=== PATIENT | male | born 1990 ===

== ENCOUNTER 2025-05-13 11:34 | Outpatient (REF) | payer OTHER, SELFPAY ==
[2025-05-13 14:06] LABS: Lipase 30 U/L (8-78)
== END 2025-05-13 11:35 | disposition home or self-care (01) ==
LOC: HO.LAB 11:34
PROVIDERS: PCP Nurse Practitioner Family; Visit Provider Nurse Practitioner Family
DX: K21.9 Gastro-esophageal reflux disease without esophagitis (principal); R10.13 Epigastric pain
CPT/HCPCS: 36415; 83013; 83690; 86364; 99202

== ENCOUNTER 2025-05-13 11:34 | Outpatient (AMB) | payer OTHER, SELFPAY ==
--- NOTE | 2025-05-13 11:37 | A.OFFVIS_ITS ---
Vital Signs 05/13/25 11:45 Height 5 ft 1.42 in Weight 148 lb BMI 27.6 BP 126/56 L Blood Pressure Location Rt brachial Position Sitting Pulse 46 L Pulse Source Pulse Oximeter Pulse Oximetry (%) 99 Oxygen Delivery Method Room Air Intake Visit Reasons: Gastroesophageal reflux disease (GERD) Intake Note: New pt for initial eval of GERD. Per PCP Note, taking PPI PRN. CC; Staffing And Scheduling Coordinator Required: Yes Staffing And Scheduling Coordinator Services: Staffing And Scheduling Coordinator Present Staffing And Scheduling Coordinator Name: Ravinder [id number] + [facility] [place] Information Interpreted: clinical only Accompanied by: Self / Same As Patient Allergies No Known Allergies Allergy (Verified 05/13/25 11:37) HPI HPI Gastroesophageal reflux disease (GERD): Details: 34-year-old male with no significant past medical history is here today for initial consultation. Patient has been concerned about his frequent acid reflux. Patient reports that he has been struggling with severe acid reflux in the past few years. On and off he has been taking omeprazole for few months then stopping for couple months. Patient reports that when he is taking omeprazole his symptoms are suppressed and he can pretty much eat anything he wants. He is not on any particular diet, however he is not eating spicy food. Patient drinks coffee in the morning eats mostly [place] food. Denies any trouble moving his bowels. Stooling daily. Denies melena, hematochezia, unintentional weight loss or ribbon like stools. Patient denies any dyspepsia, dysphagia or odynophagia. [facility] Medical History (Updated 05/13/25 @ 13:07 by Marcella Davis, [facility]) GERD (gastroesophageal reflux disease) Social History (Updated 05/13/25 @ 11:44 by Jamey Benoit [facility]) Alcohol intake: current Comment: Few times / year Patient Tobacco Use Status: Current someday Tobacco user Review of Systems Const Denies weight gain and Denies weight loss ENT Reports no additional complaints, Denies dysphagia and Denies odynophagia Card Reports no additional complaints Resp Reports no additional complaints GI Reports abdominal pain (epigastric), Denies belching, Denies melena, Denies bloating, Denies change in bowel habits, Denies dysphagia, Denies excessive flatus, Denies dyspepsia, Reports heartburn, Denies diarrhea, Denies loose stools, Denies nausea, Denies odynophagia and Denies vomiting Reports no additional complaints Musc Reports no additional complaints Neuro Reports no additional complaints Psych Reports no additional complaints Endo Reports no additional complaints Physical Exam Vital Signs: Last Vital Signs Pulse 46 L 05/13/25 11:45 BP 126/56 L 05/13/25 11:45 Pulse Ox 99 05/13/25 11:45 Oxygen Delivery Method Room Air 05/13/25 11:45 BMI result Body Mass Index 27.6 Const General: healthy appearing, no acute distress and well developed Nutritional Appearance: well nourished Orientation/consciousness: patient oriented x3 Resp Effort & Inspection: normal respiratory effort, able to speak in complete sentences, no tracheal deviation and symmetric chest movement Auscultation: clear to auscultation bilaterally Cardio Rate: regular rate GI Inspection: Yes normal to inspection and No distended Palpation (GI): Soft to palpation, not firm, nontender and No hepatosplenomegaly present Auscultation: normal bowel sounds General: Yes no CVA tenderness Back/Spine/Pelvis Back: no CVA tenderness Skin General skin exam: elasticity normal, turgor normal and dry skin Neuro General: patient oriented x3 Assessment & Plan Assessment & Plan (1) GERD (gastroesophageal reflux disease): Code(s): K21.9 - Gastro-esophageal reflux disease without esophagitis Category: Medical Qualifiers: Esophagitis presence: esophagitis presence not specified Qualified Cod e(s): K21.9 - Gastro-esophageal reflux disease without esophagitis (2) Postprandial epigastric pain: Code(s): R10.13 - Epigastric pain Plan Stopped omeprazole over 2 weeks ago we will do H pylori testing today. Will treat empirically if positive. Patient will also go for upper GI with barium swallow. Will check transglutaminase and lipase. Discussed with patient avoiding dietary triggers and like night snacking. Staying upright for minimum 3 hours after meals discussed with patient. Patient received a [place] copy of guidance and diet recommendation for GERD. Patient will follow-up in our office in 4 months. Patient was encouraged to call us if you have any GI concerning symptoms. Patient is agreeable to this plan and verbalizes understanding of instructions. He was given the opportunity to ask questions and all questions answered. Thank you for allowing me to participate in his care Orders: Orders H Pylori Breath Test 05/13/25 K21.9 - Gastro-esophageal reflux disease without esophagitis Transglutaminase IgA 05/13/25 R10.9 - Unspecified abdominal pain Lipase 05/13/25 R10.9 - Unspecified abdominal pain FL upper GI w air w Ba Swallow 05/13/25 K21.9 - Gastro-esophageal reflux disease without esophagitis Medications: New omeprazole 20 mg PO DAILY 90 caps 2RF Coding Level of Care Code New Pt Level 4 (31441) Diagnoses Gastroesophageal reflux disease, unspecified whether esophagitis present K21.9 Esophagitis presence: esophagitis presence not specified Postprandial epigastric pain R10.13 Time Spent (min) 45 Comment 35 minutes spent with patient and additional 10 minutes spent reviewing his records
[2025-05-13 11:45] VITALS: BP 126/56; PULSE 46; O2SAT 99; BMI 27.6
--- OUTSIDE RECORDS SUMMARY | 2025-05-13 13:18 | XMS_ITS | Clinical Summary ---
Author Organization [employer] Address [address] [place] [address] Care Team Providers Care Vacation Sales Advisor Name Role Phone Unavailable Primary Care Provider Unavailabl e Allergies No known active allergies Medications Omeprazole 20 MG tablet delayed-release Take 1 tablet (20 mg) by mouth Once per day. 30 tablet 2 02/13/2025 Active acetaminophen (Tylenol 8 Hour) 650 MG ER tablet Take 1 tablet (650 mg) by mouth every 8 (eight) hours if needed for mild pain. Do not crush, chew, or split. 30 tablet 04/22/2025 Active ibuprofen 600 MG tablet Take 1 tablet (600 mg) by mouth 3 times daily. 15 tablet 04/22/2025 Active amoxicillin (Amoxil) 500 MG capsule Take 1 capsule (500 mg) by mouth every 8 (eight) hours for 7 days. 21 capsule 04/22/2025 04/29/20 25 Active Problems Problem Noted Date Diagnosed Date Severe dental caries 04/22/2025 Exercise counseling 02/13/2025 Assessment & Plan (02/13/2025 4:42 PM EDT): Dietary Recommendations: Fruits, vegetables, whole grains, protein foods, and fat-free or low-fat dairy products are healthy choices. Eat different types of protein foods in your diet. This can include seafood, lean meats, poultry, beans, peas, lentils, nuts, seeds, soy products, and eggs. Limit foods and beverages higher in added sugars, saturated fat, and sodium. Exercise Recommendations: At least 150 minutes of moderate-intensity physical activity per week, or an equivalent combination of moderate- and vigorous-intensity activity Dietary counseling 02/13/2025 Assessment & Plan (02/13/2025 4:42 PM EDT): Encounters Date Type Department Care Team Description 04/22/2025 1:30 PM EST Office Visit [facility] [address] [place] [address] Andrew Lambert DDS Severe dental caries (Primary Dx) 03/13/2025 1:30 PM EDT Office Visit [facility] [address] [place] [address] William Vela DMD 02/16/2025 Telephone [facility] [address] [place] [id number] Malia Galvan NP Durable Medical Equipment 02/13/2025 2:15 PM EDT Office Visit [address] [place] [address] Sari Lopez NP Gastroesophageal reflux disease without esophagitis (Primary Dx); Numbness of right hand; Dietary counseling; Exercise counseling 02/13/2025 Travel 02/12/[address] [address] Malia Galvan NP Chart Prep 02/11/[address] [address] Trent Reynolds MD Appointment Request from Last 3 Months Social History Tobacco Use Types Packs/Day Years Used Date Smoking Tobacco: Former Cigarettes Passive Smoke Exposure: Never Smokeless Tobacco: Never Tobacco Cessation:Counseling Given: No Alcohol Answer Date Recorded How often do you have a drink containing alcohol ? 0 04/22/2025 Average Number of Drinks Not on file 025 How often do you have six or more drinks on one occasion? 0 04/22/2025 Depression Answer Date Recorded Patient Health Questionnaire-9 Score 2 02/13/2025 Patient Health Questionnaire-9 Score 2 02/13/2025 Last PHQ-9: Questionnaire Data Not on file 1 Housing Stability Answer Date Recorded What is your housing situation today? I have maren mckeon 02/13/[address] you li ve. Do you have problems with any of the following? None of the above 02/13/2025 Food Insecurity Answer Date Recorded Within the past 12 months, y ou worried that your food would run out before you got money to buy more: Sometimes True 2024 Within the past 12 months,th e food you bought just didn't last and you didn't have enough money to get more: Sometimes True 02/13/2025 Utilities Answer Date Recorded In the past 12 months, has t he electric, gas, oil or water company threatened to shut off services in your home? No 02/13/2025 Depression Answer Date Recorded Patient Health Questionnaire-2 Score 1 02/13/2025 Internet Access Answer Date Recorded Internet Access Q1 Yes 02/13/2025 Internet Access Q2 Not on file 02/13/2025 Sex and Gender Information Value Date Recorded Sex Assigned at Male 04/04/2024 4:02 PM EST Legal Sex Male 4:00 PM EST Gender Identity Male 04/04/2024 4:02 PM EST Sexual Orientation Straight 04/04/2024 4: 02 PM EST Last Filed Vital Signs Vital Sign Reading Time Taken Comments Blood Pressure 118/68 04/22/2025 1:42 PM EST Pulse 70 04/22/2025 1:42 PM EST Temperature 36.2 C (97.1 F) 02/13/2025 2:50 PM EDT Respiratory Rate 17 02/13/2025 2:50 PM EDT Oxygen Saturation 99% 02/13/2025 2:50 PM EDT Inhaled Oxygen Concentration - - Weight 67.9 kg (149 lb 12.8 oz) 02/13/2025 2:50 PM EDT Height 159.7 cm (5' 2.86 ) 02/13/2025 2:50 PM ED T Body Mass Index 26.66 02/13/2025 2:50 PM EDT Plan of Treatment Upcoming Encounters Date Type Department Care Team (Late st Contact Info) Description 06/02/2025 3:00 PM EST Office Visit [facility] [address] [place] [address] William Vela, [place] [address] [place] [address] 06/26/2025 12:45 PM EST Office Visit [facility] [address] [place] [address] Izabella Rodriguez Health Maintenance Due Date Last Done Comments Dental Prophylaxis 1990 HIV Screening 1990 SDOH Screening 1990 Family Planning (PISQ) 2005 HPV Vaccines (1 - Male 3-dos e series) 2005 Hepatitis C Screening 2008 DTaP/Tdap/Td Vaccines (1 - Tdap) 2009 Hepatitis A Vaccines (1 of 2 - Risk 2-dose series) 2009 Hepatitis B Vaccines (1 of 3 - 19+ 3-dose series) 2009 COVID-19 Vaccine (1 - 2024-2 6 season) 2025 Influenza Vaccine (#1) 2025 Dental Oral Exam 09/11/2025 03/13/2025 Alcohol/Substance Use Screening 02/13/2026 02/13/2025 Depression Screening 02/13/2026 02/13/2025, 02/13/2025 Disability Screening 02/13/2026 02/13/2025 Dental X-Ray: Bitewings 03/14/2026 03/13/2025 Tobacco Screening 04/22/2026 04/22/2025 Dental X-Ray: Full Mouth 03/14/2028 03/13/2025 Zoster Vaccines (1 of 2) 2040 RSV Patients and Patients Aged 60 years or older (1 - 1-dose 75+ series) 2065 HIB Vaccines Aged Out No longer eligi ble based on patient's age to complete this topic IPV Vaccines Aged Out No longer eligi ble based on patient's age to complete this topic Meningococcal B Vaccine Aged Out No l onger eligible based on patient's age to complete this topic Meningococcal Vaccine Aged Out No david ole eligible based on patient's age to complete this topic Pneumococcal Vaccine: Pediatrics (0 to 5 Years) and At-Risk Patients (6 to 49) Years Aged Out No longer eligible b ased on patient's age to complete this topic RSV under 20 months Aged Out No longe r eligible based on patient's age to complete this topic Rotavirus Vaccines Aged Out No longer eligible based on patient's age to complete this topic Procedures Procedure Name Priority Date/Time Associated Diagnosis Comments 2 EXTRACTION, ERUPTED TOOTH REQ REMOVAL OF BONE AND/OR SECTIONING OF TOOTH Routine 04/22/2025 1:30 PM EST CASE PRESENTATION, DETAILED AND EXTENSIVE TREATMENT PLANNING Routine 04/22/2025 1:30 PM EST CASE PRESENTATION, DETAILED AND EXTENSIVE TREATMENT PLANNING Routine 03/13/2025 1:30 PM EDT INTRAORAL - COMPLETE SERIES OF RADIOGRAPHIC IMAGES Routine 03/13/2025 1:30 PM EDT PERIODIC ORAL EVALUATION - ESTABLISHED PATIENT Routine 03/13/2025 1:30 PM EDT 32 O COMPOSITE FILLING Routine 5 12:00 AM EDT 31 O AMALGAM FILLING Routine 03/13/2025 12:00 AM EDT 28 O COMPOSITE FILLING Routine 5 12:00 AM EDT 29 DO COMPOSITE FILLING Routine 03/13/20 25 12:00 AM EDT 21 O COMPOSITE FILLING Routine 5 12:00 AM EDT 20 O COMPOSITE FILLING Routine 5 12:00 AM EDT 5 DO COMPOSITE FILLING Routine 5 12:00 AM EDT from Last 3 Months Insurance [facility] [address] [place] [address] DENTAL - HSN PARTIAL (MEDICAID)
== END 2025-05-13 12:49 | disposition home or self-care (01) ==
PROVIDERS: PCP Nurse Practitioner Family; Visit Provider Nurse Practitioner Family
DX: K21.9 Gastro-esophageal reflux disease without esophagitis (principal); R10.13 Epigastric pain
CPT/HCPCS: 99204